=== PATIENT | female | born 1995 | race Caucasian/White ===

== ENCOUNTER → 2020-08-24 11:05 | Outpatient (BNVA) | payer OTHER, SELFPAY | PROVIDERS: Visit Provider Nurse Practitioner Family | DX: R68.89 Other general symptoms and signs (principal); J06.9 Acute upper respiratory infection, unspecified; B96.89 Other specified bacterial agents as the cause of diseases classified elsewhere | CPT/HCPCS: 87400 ==

== ENCOUNTER 2022-05-19 06:00 | Outpatient (RCR) | payer OTHER, SELFPAY | END 2022-05-31 23:59 | disposition home or self-care (01) | LOC: SPT 06:00 | PROVIDERS: Visit Provider Orthopaedic Surgery | DX: Z98.890 Other specified postprocedural states (principal) | CPT/HCPCS: 97110; 97161 ==

== ENCOUNTER 2022-06-01 06:00 | Outpatient (RCR) | payer OTHER, SELFPAY | END 2022-06-28 23:59 | disposition home or self-care (01) | LOC: SPT 06:00 | PROVIDERS: Visit Provider Orthopaedic Surgery | DX: Z98.890 Other specified postprocedural states (principal) | CPT/HCPCS: 97110; 97530 ==

== ENCOUNTER 2022-06-29 06:00 | Outpatient (RCR) | payer OTHER, SELFPAY | END 2022-07-21 23:59 | disposition home or self-care (01) | LOC: SPT 06:00 | PROVIDERS: PCP Family Medicine; Visit Provider Orthopaedic Surgery | DX: Z98.890 Other specified postprocedural states (principal) | CPT/HCPCS: 97110 ==

== ENCOUNTER → 2022-08-08 09:55 | Outpatient (BNVA) | payer OTHER, SELFPAY | PROVIDERS: PCP Family Medicine; Visit Provider Nurse Practitioner Family | DX: R39.9 Unspecified symptoms and signs involving the genitourinary system (principal) | CPT/HCPCS: 81000 ==

== ENCOUNTER 2022-10-06 12:55 | Outpatient (CLI) | payer OTHER, SELFPAY ==
--- NOTE | 2022-10-06 | MR_ITS ---
WS: [id number] MRI RIGHT SHOULDER ARTHROGRAM HISTORY: SLAP TEAR COMPARISON: Prior MRI 01/21/2022 TECHNIQUE: Pre and postcontrast imaging. Gadolinium mixture was injected under fluoroscopy. Coronal T 1 fat sat, sagittal T2 fat sat, coronal T2 fat sat, axial proton density, axial T1 nonfat saturation. Prearthrogram: Mild AC joint arthritis with encroachment upon the myotendinous insertion supraspinatu s tendon. There is a small amount of edema along the AC ligament. No widening or displacement. No sub acromial impingement. No os acromion. Normal position of the biceps tendon. There is no joint effusion or marrow edema. No rotator cuff tendon tear. No muscle atrophy or edema. Post arthrogram: There is no extravasation of the joint injection into the subacromial or subdeltoid bursa. No definite labral tear is identified. There is very slight fraying along the surface of the s uperior labrum but there is no tear. There is a very small amount contrast between the superior labru m and the supraspinatus tendon which is probably a normal variant recess. MR/MR shoulder RT wo/w con [id number] IMPRESSION: 1. No rotator cuff tear or joint effusion. 2. Very minimal AC joint arthritis. 3. No labral tear is identified by MRI.
--- NOTE | 2022-10-06 13:11 | IR_ITS ---
WS: [id number] Right shoulder arthrogram, 10/06/2022 Clinical Data: SLAP TEAR Comparison: None. Fluoroscopy time: 1min [id number] # of spot films: 1 Findings: With the usual technique, a 22-gauge small spinal needle was inserted into the right shoulder joint. After localizing the needle tip with 1 mL of Omnipaque at a concentration of 240 mg/mL, an injection of 12 mL of dilute gadolinium was done. The shoulder joint shows a normal outline. No evidence of a rotator cuff tear could be seen. IR/IR arthrogram shoulderRT [id number] Impression: Satisfactory injection of a dilute gadolinium into the right shoulder joint for preparation for MR arthrogram.
== END 2022-10-06 12:56 | disposition home or self-care (01) ==
PROVIDERS: PCP Family Medicine Adult Medicine; Visit Provider Orthopaedic Surgery
DX: S43.431A Superior glenoid labrum lesion of right shoulder, initial encounter (principal); X58.XXXA Exposure to other specified factors, initial encounter; M19.011 Primary osteoarthritis, right shoulder
CPT/HCPCS: 23350; 73223; 77002

== ENCOUNTER 2023-02-02 07:50 | Outpatient (RCR) | payer OTHER, SELFPAY | END 2023-02-28 23:59 | disposition home or self-care (01) | LOC: SPT 07:50 | PROVIDERS: PCP Family Medicine; Visit Provider Neurological Surgery | DX: S22.089D Unspecified fracture of T11-T12 vertebra, subsequent encounter for fracture with routine healing (principal); X58.XXXD Exposure to other specified factors, subsequent encounter | CPT/HCPCS: 97110; 97161; G0283 ==

== ENCOUNTER 2023-03-01 06:00 | Outpatient (RCR) | payer OTHER, SELFPAY | END 2023-03-21 23:59 | disposition home or self-care (01) | LOC: SPT 06:00 | PROVIDERS: PCP Family Medicine; Visit Provider Neurological Surgery | DX: S22.009D Unspecified fracture of unspecified thoracic vertebra, subsequent encounter for fracture with routine healing (principal); X58.XXXD Exposure to other specified factors, subsequent encounter | CPT/HCPCS: 97110; G0283 ==

== ENCOUNTER 2023-06-25 01:52 | Emergency (ER) | payer OTHER, SELFPAY ==
[2023-06-25 02:00] VITALS: BP 126/91; PULSE 82; RESP 18; TEMP 36.8; O2SAT 100; BMI 29.2
[2023-06-25] MEDS: sodium chloride 0.9% 1,000 ML 999 ML IV (02:46)
[2023-06-25] MEDS: ondansetron 2 mg/ML SDV 2 mL 4 MG IVP ×2 (02:46→05:03)
[2023-06-25 02:48] VITALS: RESP 22; O2SAT 100
[2023-06-25] MEDS: HYDROmorphone 1 mg/mL INJ 1 mL IVP ×2 (02:48→05:07)
[2023-06-25 02:59] LABS: Basophils # 0.1 10^3/uL (0.0-0.1); Basophils % 0.5 %; Eosinophils # 0.3 10^3/uL (0.0-0.8); Eosinophils % 1.9 %; Hematocrit 38.2 % (36-47); Lymphocytes % 7.5 %; Mean Corpuscular HGB Conc 32.5 g/dL (30-55); Mean Corpuscular Hemoglobin 29.2 pg (27-33); Mean Corpuscular Volume 90.1 fl (85-98); Mean Platelet Volume 9.8 fL (7.4-10.4); Monocytes # 0.7 10^3/uL (0.2-0.9); Monocytes % 5.4 %; Neutrophils # 11.32 10^3/uL (1.8-7.7); Neutrophils % 84.4 %; Nucleated Red Blood Cells % 0 %; Platelet Count 391 10^3/cmm (157-399); Red Blood Count 4.24 10^6/uL (3.85-5.65); Red Cell Distribution Width 12.8 % (12.1-15.1); White Blood Count 13.42 10^3/uL (3.29-11.43)
[2023-06-25 03:23] LABS: HCG, Serum Qual Negative (Negative)
[2023-06-25] MEDS: scopolamine 1.5 Patch 1 PATCH TRANSDERMA (03:27)
[2023-06-25 03:29] LABS: Alanine Aminotransferase 17 U/L (0-33); Albumin Level 4.2 g/dL (3.5-5.2); Alkaline Phosphatase 72 U/L (35-105); Aspartate Amino Transferase 18 U/L (0-32); Blood Urea Nitrogen 13 mg/dL (6-20); C Reactive Protein 4.3 mg/L (0.0-4.9); Calcium 8.9 mg/dL (8.5-10.5); Carbon Dioxide 23 mmol/L (22-29); Chloride 99 mmol/L (98-107); Glomerular Filtration Rate 100.4 mL/min (90-130); Glucose 129 mg/dL (65-115); Lipase 36 U/L (13-60); Osmolality Calculated 284 mOsm/kg (285-295); Sodium 136 mmol/L (136-145); Total Bilirubin 0.3 mg/dL (0.15-1.2); Total Protein 7.2 g/dL (6.6-8.7)
--- NOTE | 2023-06-25 03:43 | XRR_ITS ---
PROCEDURE INFORMATION: Exam: XR Abdomen Exam date and time: 06/25/2023 3:52 AM Age: 28 years old Clinical indication: Fever and nausea and vomiting; Prior surgery; Surgery date: 6+ months; Surgery type: Gb. Gastric sleeve. Appy. Patient HX: Fever with n/v TECHNIQUE: Imaging protocol: Radiologic exam of the abdomen. Views: Frontal supine view of the abdomen. 1 View. COMPARISON: No relevant prior studies available. FINDINGS: Tubes, catheters and devices: Multifocal clips. Gastrointestinal tract: No small bowel dilation or free air identified. Bones/joints: Unremarkable. XR/XR KUB portable [id number] IMPRESSION: No acute findings.
[2023-06-25 04:15] LABS: Add Urine Microscopic? NO; Charge for UA Resulting for Rev
[2023-06-25 04:18] LABS: Bilirubin Urine Neg (Negative); Blood Urine Neg (Negative); Glucose Urine UA Norm (Normal); Ketones Urine 1+ (Negative); Leukocyte Esterase Urine Negative (Negative); Nitrate Urine Negative (Negative); Protein Urine Neg (Negative); Urine Appearance Clear (CLEAR); Urine Color Yellow (Yellow); Urobilinogen Urine Norm (Negative); pH Urine 5 (5-7)
--- NOTE | 2023-06-25 04:38 | CTR_ITS ---
PROCEDURE INFORMATION: Exam: CT Cervical Spine Without Contrast Exam date and time: 06/25/2023 4:44 AM Age: 28 years old Clinical indication: Prior surgery; Surgery date: 1-6 months; Surgery type: Cervical fusion 8 weeks ago; Patient HX: Neck pain with fever; Additional info: Neck pain, HX of recent fusion TECHNIQUE: Imaging protocol: Computed tomography of the cervical spine without contrast. Radiation optimization: All CT scans at this facility use at least one of these dose optimization techniques: automated exposure control; mA and/or kV adjustment per patient size (includes targeted exams where dose is matched to clinical indication); or iterative reconstruction. COMPARISON: CR XR cervical spine 4-5V [id number] 10/17/2019 3:28 PM RADIATION DOSE METRICS: Total DLP (mGy-cm): 459.57 FINDINGS: Bones/joints: No acute fracture. C1-C2 posterior fusion appears intact with bone graft material. Normal alignment. No significant disc bulge or herniation. No severe spinal canal stenosis. No significant neural foraminal narrowing. Lungs: Lung apices are normal. Soft tissues: Mild upper posterior neck edema or scarring. No focal abscess. CT/CT cervical spin wo con* [id number] IMPRESSION: 1. No acute findings. 2. C1-C2 posterior fusion appears intact with bone graft material. Based on history, an MRI may be helpful if concern remains.
[2023-06-25] MEDS: haloperidol inj 5 mg/mL INJ 1 mL 3 MG IVP (05:04)
[2023-06-25 05:07] VITALS: RESP 18; O2SAT 100
[2023-06-25] MEDS: ketorolac 30 mg/mL INJ IVP (06:20)
[2023-06-25 07:01] VITALS: O2SAT 98
--- NOTE | 2023-06-25 16:13 | ED_ITS ---
HPI - Nausea/Vomiting/Diarrhea 2 General: Chief complaint: Nausea/Vomiting/Diarrhea Stated complaint: Fever, N/V, Neck pain Time Seen by Provider: 06/25/23 02:10 History of Present Illness: 28 year old female who was a couple of w eeks status post C1 to CT fusion, done in [place]. She states that she began to get sick last evening, and has vomited multiple times. The retching has caused her neck to hurt significantly. She was experiencing an increase in neck pain prior to this for the last couple of days. She had done well prior to that. She does note that physical therapy has gotten a bit more aggressive lately. She denies diarrhea. She denies fever. She is extremely nauseated. She has some mild epigastric pain. She notes that her neck pain is quite intense after vomiting. It radiates to her bilateral shoulders. No numbness or tingling. Associated nausea: Yes Associated symtoms: Reports dizziness, headache(s) and nausea; Denies change in vision, chest pain or palpitations Review of Systems 2 Const: Denies: fever(s), chills or body aches Eyes: Denies: change in vision ENMT: Denies: throat pain or swelling of lips/tongue Card: Denies: chest pain or palpitations Resp: Denies: dyspnea, productive cough, non-productive cough or wheezing GI: Reports: abdominal pain, nausea and vomiting; Denies: diarrhea or hematochezia : Denies: difficulty voiding Skin/Breast: Denies: rash Neuro: Reports: headache(s) and dizziness; Denies: weakness in extremities or confusion PFSH ED 2 PFSH: Medical History Shoulder joint painful on movement Repetitive strain injury of right shoulder Joint pain Bulging discs Arthritis Yeast vaginitis Migraine headache Surgical History History of carpal tunnel surgery of left wrist History of ankle surgery History of appendectomy H/O shoulder surgery right shoulder scope-cartilage repair and bone spur removed History of gastric surgery gastric sleeve History of cholecystectomy Hx of tonsillectomy Social History Smoking and tobacco/nicotine status: never used tobacco/nicotine Second hand smoke exposure: No Alcohol intake: never Substance/Drug Use: never Physical Exam 2 Const: GENERAL APPEARANCE: cooperative and ill appearing; not frail appearing HENMT: COMMON NORMALS: normocephalic, atraumatic and Normal external nose present HEAD & SCALP: normocephalic and atraumatic FACE & SINUS: normal facial exam and face symmetric NOSE: Normal external nose present Eye: COMMON NORMALS: Equal, round and reactive pupils present and EOMs intact bilaterally PUPIL: Yes Equal, round and reactive pupils present Neck/C-Spine: GENERAL: Yes trachea midline Chest: CHEST: Yes Symmetrical chest wall rise Resp: COMMON NORMALS: normal respiratory effort, No retractions, No use of accessory muscles and clear to auscultation bilaterally AUSCULTATION: clear to auscultation bilaterally Cardio: COMMON NORMALS: regular rate and regular rhythm RATE: regular rate RHYTHM: regular rhythm GI: COMMON NORMALS: Normal to inspection, nondistended, normoactive bowel sounds present PALPATION: Yes Tenderness to palpation present (GI) (epigastric) and Yes Guarding due to palpation present (GI) Extremity: COMMON NORMALS: no pedal edema Neuro: VIVEK COMA SCALE: document GCS findings [place] coma scale eye opening: Spontaneous [place] coma scale verbal response: Orientated [place] coma scale motor response: Obey commands [place] coma scale total score: 15 S ENSORY EXAM: Yes extremities (intact) Psych: COMMON NORMALS: speech normal SPEECH: Yes normal speech Skin: COMMON NORMALS: no rashes or lesions noted GENERAL SKIN EXAM: no rashes or lesions noted Course 2 Vital Signs: Vital signs: Vital Signs Temperature 98.3 F 06/25/23 02:00 Pulse Rate 82 06/25/23 02:00 Respiratory Rate 18 06/25/23 05:07 Blood Pressure 126/91 06/25/23 02:00 Pulse Oximetry 98 06/25/23 07:01 Oxygen Delivery Me thod Room Air 06/25/23 02:00 MDM - Nausea/Vomiting/Diarrhea Medical Decision Making 28 year old female status post high cervical fusion. Vomiting seemed to worsen with pain medication given, which was hydromorphone. However, vomiting has improved currently. Her neck pain has improved as well. Her white blood cell count is 13.4. CRP is 4. Her laboratories otherwise not remarkable. Her KUB is non acute. CT of the cervical spine shows no complication with C1-C2 fusion. She is afebrile. With improvement in her symptoms, she'll be allowed home to return for any worsening symptoms despite treatment. We'll increase our pain medication and provide her with anti emetic. Lab Data 06/25/23 02:48 06/25/23 02:48 Radiology Impressions KUB X-Ray 06/25/23 03:43 IMPRESSION: No acute findings. Cervical Spine CT 06/25/23 04:38 IMPRESSION: 1. No acute findings. 2. C1-C2 posterior fusion appears intact with bone graft material. Based on history, an MRI may be helpful if concern remains. Laboratory Results WBC 13.42 10^3/uL (3.29-11.43) H 06/25/23 02:48 RBC 4.24 10^6/uL (3.85-5.65) 06/25/23 02:48 Hgb 12.40 g/dL (11.27-16.99) 06/25/23 02:48 Hct 38.2 % (36-47) 06/25/23 02:48 MCV 90.1 fl (85-98) 06/25/23 02:48 MCH 29.2 pg (27-33) 06/25/23 02:48 MCHC 32.5 g/dL (30-55) 06/25/23 02:48 RDW 12.8 % (12.1-15.1) 06/25/23 02:48 Plt Count 391 10^3/cmm (157-399) 06/25/23 02:48 MPV 9.8 fL (7.4-10.4) 06/25/23 02:48 Neut % (Auto) 84.4 % 06/25/23 02:48 Lymph % (Auto) 7.5 % 06/25/23 02:48 [place] % (Auto) 5.4 % 06/25/23 02:48 Eos % (Auto) 1.9 % 06/25/23 02:48 Baso % (Auto) 0.5 % 06/25/23 02:48 Neut # (Auto) 11.32 10^3/uL (1.8-7.7) H 06/25/23 02:48 Lymph # (Auto) 1.0 10^3/uL (0.8-4.8) 06/25/23 02:48 [place] # (Auto) 0.7 10^3/uL (0.2-0.9) 06/25/23 02:48 Eos # (Auto) 0.3 10^3/uL (0.0-0.8) 06/25/23 02:48 Baso # (Auto) 0.1 10^3/uL (0.0-0.1) 06/25/23 02:48 Nucleated RBC % (auto) 0 % 06/25/23 02:48 Nucleated RBCs # 0.0 /100WBC 06/25/23 02:48 Sodium 136 mmol/L (136-145) 06/25/23 02:48 Potassium 4.0 mmol/L (3.5-5.1) 06/25/23 02:48 Chloride 99 mmol/L (98-107) 06/25/23 02:48 Carbon Dioxide 23 mmol/L (22-29) 06/25/23 02:48 Anion Gap 18.0 (5-19) 06/25/23 02:48 BUN 13 mg/dL (6-20) 06/25/23 02:48 Creatinine 0.7 mg/dL (0.5-0.9) 06/25/23 02:48 GFR Calculation 100.4 mL/min (90-130) 06/25/23 02:48 Glucose 129 mg/dL (65-115) H 06/25/23 02:48 Calculated Osmolality 284 mOsm/kg (285-295) L 06/25/23 02:48 Calcium 8.9 mg/dL (8.5-10.5) 06/25/23 02:48 Total Bilirubin 0.3 mg/dL (0.15-1.2) 06/25/23 02:48 AST 18 U/L (0-32) 06/25/23 02:48 ALT 17 U/L (0-33) 06/25/23 02:48 Alkaline Phosphatase 72 U/L (35-105) 06/25/23 02:48 C-Reactive Protein 4.3 mg/L (0.0-4.9) 06/25/23 02:48 Total Protein 7.2 g/dL (6.6-8.7) 06/25/23 02:48 Albumin 4.2 g/dL (3.5-5.2) 06/25/23 02:48 Globulin 3.0 g/dL (1.3-4.6) 06/25/23 02:48 Lipase 36 U/L (13-60) 06/25/23 02:48 HCG, Qual Negative (Negative) 06/25/23 02:48 Urine Color Yellow (Yellow) 06/25/23 04:07 Urine Appearance Clear (CLEAR) 06/25/23 04:07 Urine pH 5 (5-7) 06/25/23 04:07 Ur Specific [place] 1.020 (1.005-1.030) 06/25/23 04:07 Urine Protein Neg (Negative) 06/25/23 04:07 Urine Glucose (UA) Norm (Normal) 06/25/23 04:07 Urine Ketones 1+ (Negative) H 06/25/23 04:07 Urine Blood Neg (Negative) 06/25/23 04:07 Urine Nitrate Negative (Negative) 06/25/23 04:07 Urine Bilirubin Neg (Negative) 06/25/23 04:07 Urine Urobilinogen Norm mg/dL (Negative) 06/25/23 04:07 Ur Leukocyte Esterase Negative (Negative) 06/25/23 04:07 All radiology interpretation(s) finalized by discharge Discharge Plan Discharge Patient Disposition: Home Clinical Impression: Neck pain, acute, Vomiting Condition: Stable Prescriptions: New Percocet 7.5-325 mg tablet 1 tab PO Q6H PRN (Reason: pain) Qty: 10 0RF ondansetron 4 mg tablet,disintegrating 4 mg PO Q6H PRN (Reason: nausea and vomiting) Qty: 14 0RF No Action duloxetine [Cymbalta] 60 mg capsule,delayed release(DR/EC) 20 mg PO BID hydrocodone-acetaminophen 5-325 mg tablet 1 tab PO Q6H PRN ondansetron HCl 4 mg tablet 4 mg PO Q8H drospirenone-ethinyl estradiol [MAN (28)] 3-0.02 mg tablet 1 tab PO DAILY fluconazole [Diflucan] 150 mg tablet 150 mg PO Q3D Qty: 2 0RF celecoxib [Celebrex] 200 mg capsule 200 mg PO DAILY Qty: 30 1RF metaxalone 800 mg tablet 800 mg PO ONCE PRN rizatriptan [Maxalt] 10 mg tablet 10 mg PO Q2H PRN Rx Instructions: do not exceed 3 doses per 24 hrs fluticasone propionate [Flonase Allergy Relief] 50 mcg/actuation spray,suspension 2 spray intranasal DAILY 14 Days Qty: 16 0RF Rx Instructions: administer into each nostril loratadine [Allergy Relief (loratadine)] 10 mg tablet 10 mg PO DAILY Qty: 30 0RF Discharge Orders: Discharge ED (Routine); Ordered 06/25/23 Ordered By: Rick Parks Referrals: TITA CRUZ MD [Primary Care Provider] - Patient Instructions: Acute Neck Pain (ED), Opioid Safety, Pain Management, Vomiting - Adult Activity Restrictions/Additional Instructions: Follow a liquid diet for the next 24 hours, then may add solid food back as you can. Take the nausea medication (ondansetron) scheduled every 4 hours while awake today whether you feel you needed or not. Pain medication as directed. Return for fever, worsening pain or vomiting despite treatment, other concerning symptoms. 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
== END 2023-06-25 07:16 | disposition home or self-care (01) ==
PROVIDERS: Emergency Provider Emergency Medicine; PCP Family Medicine
DX: M54.2 Cervicalgia (principal); R11.11 Vomiting without nausea
CPT/HCPCS: 72125; 74018; 80053; 81003; 83690; 84703; 85025; 86140; 96361; 96374; 96375; 96376; 99285; J1170; J1630; J1885; J2405; J7030

== ENCOUNTER → 2023-06-29 16:02 | Outpatient (BNVA) | payer OTHER, SELFPAY | PROVIDERS: PCP Family Medicine; Visit Provider Registered Nurse Neonatal Intensive Care | DX: R30.9 Painful micturition, unspecified (principal) | CPT/HCPCS: 81000; 87086 ==

== ENCOUNTER 2023-11-24 07:12 | Outpatient (CLI) | payer OTHER, SELFPAY ==
--- NOTE | 2023-11-24 07:16 | MR_ITS ---
WS: [id number] MRI CERVICAL SPINE NONCONTRAST TECHNIQUE: Sagittal T1, T2 and STIR imaging. Axial T2, gradient, and fiesta imaging. CLINICAL INFORMATION: CERVICAL REGION RADICULOPATHY COMPARISON: CT 06/25/2023 FINDINGS: Straightening of the normal cervical lordosis. Prior postoperative changes cervical fusion at C1-2 wi th posterior bone graft material. Mild spinal canal narrowing at the foramen magnum. Cord signal appe ars normal. Some images are degraded due to susceptibility artifact from hardware. C2-C3: Mild facet arthropathy. Spinal canal and foramen are patent. C3-C4: Mild facet arthropathy. Spinal canal is patent. Foramen are patent. C4-C5: Mild disc osteophytic ridging. Mild facet arthropathy. Spinal canal and foramen are patent. C5-C6: No significant disc bulging. Mild facet arthropathy. Spinal canal and foramina are patent. C6-C7: Mild disc bulging with osteophytic ridging. Mild LEFT and no significant RIGHT foraminal narro wing. Mild facet arthropathy. Spinal canal is patent. C7-T1: Shallow LEFT paracentral protrusion. Mild LEFT and no significant RIGHT foraminal narrowing. S fifi canal is patent. Visualized brain stem structures: Normal. Prevertebral soft tissues: Normal. Tiny RIGHT foraminal protrusion T2-3 without significant foraminal narrowing. MR/MR cervical spin wo con* [id number] IMPRESSION: 1. Straightening of the normal cervical lordosis with prior posterior fusion a t C1 and C2 with dorsal bone graft material. Mild narrowing at the foramen magn um. Cord signal appears normal. 2. Slightly low-lying cerebellar tonsils. 3. Mild disc bulging C5-C6 C6-C7 and C7-T1. 4. Mild LEFT C6-7 and LEFT C7-T1 foraminal narrowing. 5. Shallow LEFT paracentral protrusion C7-T1.
== END 2023-11-24 07:13 | disposition home or self-care (01) ==
LOC: RAD 07:12
PROVIDERS: PCP Family Medicine; Visit Provider Physician Assistant
DX: M54.12 Radiculopathy, cervical region (principal); M43.22 Fusion of spine, cervical region
CPT/HCPCS: 72141

== ENCOUNTER 2024-03-08 15:15 | Outpatient (CLI) | payer OTHER, SELFPAY ==
[2024-03-08] VITALS (7 sets, daily range): BP systolic 97–133; BP diastolic 54–84; PULSE 81–92; BMI 33.6
--- NOTE | 2024-03-08 16:04 | USR_ITS ---
PROCEDURE INFORMATION: Exam: US Biophysical Profile Without Non-Stress Test Exam date and time: 03/08/2024 4:26 PM Age: 28 years old Clinical indication: Other: Nonreactive nst; TECHNIQUE: Imaging protocol: US biophysical profile without non-stress testing. COMPARISON: [place] [id number] 01/18/2024 1:55 PM FINDINGS: heart rate: 138 bpm BIOPHYSICAL PROFILE: breathing (BPP): 2 out of 2. gross body movement (BPP): 2 out of 2. tone (BPP): 2 out of 2. Amniotic fluid (BPP): 2 out of 2. US/US OB BPP wo NST [id number] IMPRESSION: Biophysical profile measures 12/06
== END 2024-03-08 17:08 | disposition home or self-care (01) ==
LOC: OPOB 15:15 → OBGYN 15:16
PROVIDERS: PCP Family Medicine; Visit Provider Family Medicine
DX: O24.419 Gestational diabetes mellitus in pregnancy, unspecified control (principal); Z3A.00 Weeks of gestation of pregnancy not specified
CPT/HCPCS: 59025; 76819; 99211

== ENCOUNTER 2024-03-11 15:55 | Outpatient (CLI) | payer OTHER, SELFPAY ==
[2024-03-08 16:21] VITALS: RESP 18
[2024-03-08 17:08] VITALS: RESP 19
[2024-03-11 16:05] VITALS: BMI 34.2
[2024-03-11 16:08] VITALS: BP 128/71; PULSE 85
[2024-03-11 16:50] VITALS: BP 110/74; PULSE 78; RESP 16; TEMP 36.7; O2SAT 99
== END 2024-03-11 17:00 ==
LOC: OPOB 15:56 → OBGYN 15:57
PROVIDERS: PCP Family Medicine; Visit Provider Family Medicine
DX: O24.419 Gestational diabetes mellitus in pregnancy, unspecified control (principal); Z3A.00 Weeks of gestation of pregnancy not specified
CPT/HCPCS: 59025; 99211

== ENCOUNTER 2024-03-14 13:28 | Outpatient (CLI) | payer OTHER, SELFPAY ==
[2024-03-14 13:30] VITALS: BMI 34.5
[2024-03-14 13:42] VITALS: BP 119/72; PULSE 84
[2024-03-14 14:03] VITALS: BP 129/77; PULSE 87
[2024-03-14 14:24] VITALS: BP 140/79; PULSE 74
== END 2024-03-14 14:55 ==
LOC: OPOB 13:31 → OBGYN 13:31
PROVIDERS: PCP Family Medicine; Visit Provider Family Medicine
DX: O24.419 Gestational diabetes mellitus in pregnancy, unspecified control (principal); Z3A.00 Weeks of gestation of pregnancy not specified
CPT/HCPCS: 59025; 99211

== ENCOUNTER 2024-03-18 13:41 | Outpatient (CLI) | payer OTHER, SELFPAY ==
[2024-03-18 13:41] VITALS: RESP 16
[2024-03-18 13:44] VITALS: BP 136/81; PULSE 100
[2024-03-18 13:48] VITALS: BMI 35.3
[2024-03-18 13:59] VITALS: BP 137/77; PULSE 86
[2024-03-18 14:13] VITALS: BP 135/76; PULSE 90
[2024-03-18 14:24] VITALS: BP 135/76; PULSE 90; RESP 16; O2SAT 98
--- NOTE | 2024-03-19 09:39 | P.ANESASSM_ITS ---
Pre-Anesthetic Assessment Height/Weight: Height 1.57 m Weight 87.543 kg Pulse Resp BP Pulse Ox 90 16 135/76 98 03/18/24 14:24 03/18/24 14:24 03/18/24 14:24 03/18/24 14:24 Epidural Familial anesthetic complications: PONV Was Beta Hope taken within 24 hours: N/A Was Clonidine taken within 24 hours: N/A Social No alcohol and No tobacco Exam alert, oriented x 3, clear to auscultation bilaterally and regular rate & rhythm Airway Mallampati: Class I Dentition: full Musc/skel L1 fracture Anesthetic Plan ASA status: 2 Anesthesia: Regional (specify below) Risk of > 500 ml blood loss (7ml/kg in children): Yes, adequate IV access and fluids planned Medications/Allergies Home Medications Medication Instructions Recorded Confirmed Last Taken Type duloxetine 60 mg capsule,delayed 20 mg PO BID 06/01/22 03/18/24 03/18/24 09:00 History release (Cymbalta) hydrocodone 5 mg-acetaminophen 325 1 tab PO Q6H PRN pain 08/17/22 03/18/24 03/17/24 09:00 History mg tablet gabapentin 400 mg capsule 400 mg PO DAILY 03/18/24 03/18/24 03/18/24 09:00 History metformin 500 mg tablet,extended 1,000 mg PO DAILY 03/18/24 03/18/24 03/18/24 09:00 History release 24 hr Allergies Allergy/AdvReac Type Severity Reaction Status Date / Time hydromorphone [From Dilaudid] Allergy ADR-Vomitin Verified 06/29/23 15:50 g [facility] Anesthesia Medical History Shoulder joint painful on movement Repetitive strain injury of right shoulder Joint pain Bulging discs Arthritis Yeast vaginitis Migraine headache Surgical History History of carpal tunnel surgery of left wrist History of ankle surgery History of appendectomy H/O shoulder surgery right shoulder scope-cartilage repair and bone spur removed History of gastric surgery gastric sleeve History of cholecystectomy Hx of tonsillectomy Social History Smoking and tobacco/nicotine status: never used tobacco/nicotine Second hand smoke exposure: No Alcohol intake: never Substance/Drug Use: never Female Reproductive History : 1 Data Anesthesia Cardiac Studies: No Data to Display
== END 2024-03-18 14:25 | disposition home or self-care (01) ==
LOC: OPOB 13:41 → OBGYN 03-19 09:36
PROVIDERS: PCP Family Medicine; Visit Provider Family Medicine
DX: O24.419 Gestational diabetes mellitus in pregnancy, unspecified control (principal); Z3A.00 Weeks of gestation of pregnancy not specified
CPT/HCPCS: 59025; 99211

== ENCOUNTER 2024-03-21 16:49 | Outpatient (CLI) | payer OTHER, SELFPAY ==
[2024-03-21 17:01] VITALS: BP 126/79; PULSE 97
[2024-03-21 17:15] VITALS: BMI 34.9
[2024-03-21 17:17] VITALS: BP 124/75; PULSE 86
[2024-03-21 17:27] VITALS: BP 124/75; PULSE 86; RESP 16
== END 2024-03-21 17:27 | disposition home or self-care (01) ==
LOC: OPOB 16:49 → OBGYN 16:50
PROVIDERS: PCP Family Medicine; Visit Provider Family Medicine
DX: O24.419 Gestational diabetes mellitus in pregnancy, unspecified control (principal); Z3A.00 Weeks of gestation of pregnancy not specified; R10.9 Unspecified abdominal pain
CPT/HCPCS: 59025

== ENCOUNTER 2024-03-26 23:34 | Outpatient (CLI) | payer OTHER, SELFPAY ==
[2024-03-26 23:51] VITALS: BP 132/82; PULSE 77; TEMP 35.4
[2024-03-27] VITALS: RESP 18; BMI 35.4
[2024-03-27 00:11] VITALS: BP 122/81; PULSE 81
[2024-03-27 00:19] VITALS: BP 135/82; PULSE 75
[2024-03-27 00:34] VITALS: BP 120/75; PULSE 72
[2024-03-27 00:40] VITALS: BP 120/75; PULSE 72; RESP 18
== END 2024-03-27 00:45 | disposition home or self-care (01) ==
LOC: OPOB 23:37 → OBGYN 23:38
PROVIDERS: PCP Family Medicine; Visit Provider Family Medicine
DX: O36.8190 Decreased fetal movements, unspecified trimester, not applicable or unspecified (principal); Z3A.00 Weeks of gestation of pregnancy not specified; O16.9 Unspecified maternal hypertension, unspecified trimester; R51.9 Headache, unspecified
CPT/HCPCS: 59025; 99211

== ENCOUNTER 2024-03-29 03:27 | Inpatient (IN) | payer OTHER, SELFPAY ==
[2024-03-29] VITALS (97 sets, daily range): BP systolic 123–182; BP diastolic 60–112; PULSE 66–133; TEMP 36.2–36.7; O2SAT 99–100; BMI 34.2
[2024-03-29 03:59] LABS: Basophils # 0.1 10^3/uL (0.0-0.1); Basophils % 0.7 %; Eosinophils # 0.2 10^3/uL (0.0-0.8); Eosinophils % 1.5 %; Hematocrit 27.5 % (36-47); Lymphocytes # 3.2 10^3/uL (0.8-4.8); Lymphocytes % 29.5 %; Mean Corpuscular HGB Conc 31.3 g/dL (30-55); Mean Corpuscular Hemoglobin 26.1 pg (27-33); Mean Corpuscular Volume 83.3 fl (85-98); Mean Platelet Volume 9.8 fL (7.4-10.4); Monocytes # 0.9 10^3/uL (0.2-0.9); Neutrophils # 6.41 10^3/uL (1.8-7.7); Neutrophils % 59.7 %; Nucleated Red Blood Cells % 0.2 %; Platelet Count 310 10^3/cmm (157-399); Red Cell Distribution Width 13.5 % (12.1-15.1); White Blood Count 10.74 10^3/uL (3.29-11.43)
[2024-03-29 04:02] LABS: Bilirubin Urine Negative (Negative); Blood Urine Negative (Negative); Glucose Urine UA Negative (Normal); Ketones Urine Negative (Negative); Leukocyte Esterase Urine Negative (Negative); Nitrate Urine Negative (Negative); Protein Urine Negative (Negative); Specific Gravity, Urine 1.018 (1.005-1.030); Urine Appearance Clear (CLEAR); Urine Color Yellow (Yellow)
[2024-03-29 04:07] LABS: Add Urine Microscopic? YES; Bacteria Urine None Seen /hpf; Hyaline Casts Urine 0-4 /lpf; RBC Urine 0-2 /hpf (0-2); Squamous Epithelial Cell Urine 0-5 /hpf (0-5); WBC Urine 0-5 /hpf (0-5)
[2024-03-29 04:09] LABS: Amphetamines Screen Urine Negative (Negative); Barbiturates Screen Urine Negative (Negative); Benzodiazepines Screen Urine Negative (Negative); Cocaine Screen Urine Negative (Negative); Opiate Screen Urine Negative (Negative); PCP Screen Urine Negative (Negative); THC Screen Urine Negative (Negative)
[2024-03-29 04:19] LABS: Alanine Aminotransferase < 5 U/L (0-33); Albumin Level 3.2 g/dL (3.5-5.2); Alkaline Phosphatase 164 U/L (35-105); Anion Gap 15.9 (5-19); Aspartate Amino Transferase 12 U/L (0-32); Blood Urea Nitrogen 8 mg/dL (6-20); Calcium 8.1 mg/dL (8.5-10.5); Carbon Dioxide 21 mmol/L (22-29); Chloride 106 mmol/L (98-107); Creatinine Clr Calc Pharmacy 213.4071; Globulin 2.6 g/dL (1.3-4.6); Glomerular Filtration Rate 191.5 mL/min (90-130); Glucose 79 mg/dL (65-115); Osmolality Calculated 285 mOsm/kg (285-295); Potassium 3.9 mmol/L (3.5-5.1); Sodium 139 mmol/L (136-145); Total Bilirubin 0.2 mg/dL (0.15-1.2); Total Protein 5.8 g/dL (6.6-8.7); Uric Acid 3.7 mg/dL (2.4-5.7)
[2024-03-29 04:20] LABS: Urine Creatinine 84 mg/dL (28-217); Urine Protein Random 13 mg/dL
[2024-03-29 04:25] LABS: UPRO/UCREAT Ratio 0.15 mg/mg CR
[2024-03-29] MEDS: ampicillin 2,000 MG in sodium chloride 0.9% (plus) 50 ML 100 MG IV (04:53)
[2024-03-29] MEDS: lactated ringers 1,000 ML 999 ML IV ×2 (05:30→06:50)
--- NOTE | 2024-03-29 06:44 | P.ANESUD_ITS ---
Pre-Anesthetic Update Pre-Anesthetic Assessment: Date of Surgery/Procedure: 03/29/24 Preop Ellie gnosis: Intra uterine Proposed Procedure: labo epidural Any changes to Pre-Anesthetic Assessment?: No Last Intake: solids: 2200, currently sipping water Labs Last 48hrs: Short CBC 03/29/24 Range/Units 03:20 WBC 10.74 (3.29-11.43) 10^ 3/uL Hgb 8.60 L (11.27-16.99) g/ dL Hct 27.5 L (36-47) % MCV 83.3 L (85-98) fl Plt Count 310 (157-399) 10^3/c mm Neut % (Auto) 59.7 % Neut # (Auto) 6.41 (1.8-7.7) 10^3/u L BMP 03/29/24 03:20 Sodium 139 Potassium 3.9 Chloride 106 Carbon Dioxide 21 L BUN 8 Creatinine 0.4 L Glucose 79 Calcium 8.1 L Liver Function 03/29/24 Range/Units 03:20 Total Bilirubin 0.2 (0.15-1.2) mg/dL AST 12 (0-32) U/L ALT < 5 (0-33) U/L Alkaline Phosphata se 164 H (35-105) U/L Albumin 3.2 L (3.5-5.2) g/dL Urine 03/29/24 Range/Units 03:20 Urine Color Yellow (Yellow) Urine Appearance Clear (CLEAR) Urine pH 6.0 (5-7) Ur Specific Gravit y 1.018 (1.005-1.030) Urine Protein Negative (Negative) Urine Glucose (UA) Negative (Normal) Urine Ketones Negative (Negative) Urine Nitrate Negative (Negative) Urine Bilirubin Negative (Negative) Ur Leukocyte Yvonne ase Negative (Negative) Urine RBC 0-2 (0-2) /hpf Urine WBC 0-5 (0-5) /hpf Blood Bank 03/29/24 03:20 Blood Type B Positive Rho(D) Type Rh positive Antibody Screen Negative Vitals: Temperature 97.2 F L 03/29/24 04:04 Pulse Rate 88 03/29/24 06:22 Pulse Rhythm Regular 03/29/24 03:28 Pulse Strength 3+ Normal 03/29/24 03:28 Respiratory Effort Spontaneous, Non- Labored 03/29/24 03:28 Respiratory Depth Normal 03/29/24 03:28 Respiratory Patter n Normal 03/29/24 03:28 Blood Pressure 147/71 03/29/24 06:22 Oxygen Delivery Me thod Room Air 03/29/24 03:28 Exam: Pre-Anes Outpt Exam: alert, oriented x 3 and clear to auscultation bilaterally Cardiac Studies: No Data to Display
--- NOTE | 2024-03-29 07:21 | ANES.PROC ---
Documented by User: Monique Lehman 03/29/24 07:23 Anesthesia Procedures Procedure/Date: 03/29/24 Epidural: Time Out Performed: Yes Consents Signed: Procedure Consent Consent: requested by attending/covering physician, from patient, risks and benefits reviewed and patient agrees to proceed Lumbar Level: L3-L4 Epidural position: sitting Epidural procedure: sterile prep of area, 1% lidocaine to numb the area, 18 g needle, negative for paresthesia passed, neg for paresthesia, test dose given, 1.5% xylocaine 1:200k epi, 0.2% Ropivacaine bolus ml (5), placed PCEA, no systemic response, sterile dressing applied and 0.2% Ropiavacaine @ mls/hr (10) Additional Comments: JERSON 7cm, catheter easily threaded to 5cm in the space. VS monitored and remained stable throughout procedure. Pt educated on ZOOLOGY TECHNICAL OFFICER and reports decreased pain with contractions Documented by User: Sami Mendoza DO 03/29/24 21:37 Anesthesia Procedures Procedure/Date: 03/29/24 Procedure Narrative: called for increasedpain at 2130, epidural appears to be working. 100mcg fentanyl and 5cc 2%lidocaine pushed through epidural
[2024-03-29] MEDS: ROPivacaine syringe 100 MG/50 ML SYRINGE 10 MG EPIDURAL ×5 (07:24→20:53)
[2024-03-29] MEDS: ampicillin 1,000 MG in sodium chloride 0.9% (plus) 50 ML 100 MG IV ×4 (09:12→20:22)
[2024-03-29] MEDS: gabapentin 300 mg Capsule 600 MG PO ×3 (09:36→20:22)
[2024-03-29] MEDS: dextrose 5%-lactated ringers 1,000 ML 125 ML IV ×2 (11:07→20:22)
[2024-03-29] MEDS: oxytocin 30 UNIT/500 ML BAG IV (12:14)
--- NOTE | 2024-03-29 19:01 | PM.OPHPUD ---
Labor & Delivery H&P Update Date of Procedure: March 29, 2024 Date H&P Performed: 03/19/24 Admission Diagnosis: IUP at 38 weeks 3 days gestation Gestational diabetes mellitus -induced hypertension Chronic pain Preop diagnosis: Intra uterine Primary indication for procedure: The patient presented to labor and delivery complaining of headache, contractions and elevated blood pressures at home. She did have a couple severely elevated blood pressures upon presentation so decision was made to proceed with induction. She was brittany regularly and rating them 7-8 out of 10. Her cervix was 1 cm 75% effaced. Since it was favorable she was started on Pitocin. Planned procedure: Expectant management of labor and delivery.
--- NOTE | 2024-03-29 19:07 | PM.PN ---
Subjective Subjective: This is a 28-year-old at 38 weeks 3 days gestation who presented to labor and delivery complaining of contractions and elevated blood pressures. Her has also been complicated by gestational diabetes mellitus on metformin and chronic pain on opioid pain medications. The patient had a couple blood pressures in the severe range. Her platelets, AST, ALT were within normal limits. Her protein creatinine ratio was 0.15. She was not considered preeclamptic but -induced hypertension. She was likely in early labor with 75% effacement upon presentation. She received an epidural for pain management. After receiving her epidural her contractions began to space out to every 6 minutes so she was then started on Pitocin. She is now 3 cm completely effaced, -3 station with a bulging bag of water. The infant's head was not ballotable so I performed artificial rupture of membranes. There was a copious amount of clear fluid. Vitals/I&O/Wt Last Vital Signs Temp 97.2 F L 03/29/24 04:04 Pulse 83 03/29/24 19:01 BP 161/85 03/29/24 19:01 Pulse Ox 100 03/29/24 07:12 O2 Del Method Room Air 03/29/24 03:28 03/29/24 03/29/24 03/29/24 06:59 14:59 22:59 Intake Total 1050 / 1050 166.017 / 166.017 133.75 / 299.767 Balance 1050 / 1050 166.017 / 166.017 133.75 / 299.767 Weight last 48 hrs Weight 84.822 kg Physical Exam Narrative: Alert and oriented, resting in bed, SVE 3 cm completely effaced -3 station. Urinary Catheter Management: Ruano: Cath Placed During This Visit: yes Reason for Continuing Indwelling Catheter: Accurate Measurement of Urinary Output in Critically Ill Patients Urinary Catheter Date of Insertion: 03/29/24 Urinary Catheter Time of Insertion: 08:00 Data 03/29/24 03:20 03/29/24 03:20 A&P Assessment and plan (1) -induced hypertension in third trimester: She is on hypertensive protocol but has not required any doses of antihypertensive medication. (2) Gestational diabetes mellitus (GDM): Upon admission the patient's blood sugar was within normal limits. She has been well-controlled on metformin. At this time I do not feel the need for intrapartum insulin since she is n.p.o. (3) Chronic pain: Attestations Medical Necessity Statement*: Expectant management of labor and delivery Coding Level of Care Code Acute Code for Chg Fwd Diagnoses -induced hypertension in third trimester O13.3 Gestational diabetes mellitus (GDM) O24.419 Chronic pain G89.29
[2024-03-29] MEDS: acetaminophen 325 mg Tablet 650 MG PO (20:52)
[2024-03-29] MEDS: labetalol 5 mg/mL SDV 20mL 20 MG IVP (23:04)
[2024-03-29] MEDS: miSOPROStol 200 mcg Tablet 800 MCG PR (23:37)
[2024-03-29] MEDS: oxytocin 30 UNIT/500 ML BAG 600 UNIT IV (23:55)
--- NOTE | 2024-03-29 23:58 | PM.DELIVERY ---
Delivery Note: Date of delivery: March 29, 2024 Pre-delivery diagnoses: -induced hypertension Gestational diabetes mellitus Chronic pain Intrauterine at 38 weeks 3 days gestation Estimated blood loss (mL): 300 Pre-Delivery Course: The patient had routine care at [facility]. The was complicated by chronic pain syndrome with prescription opioid use and gestational diabetes mellitus controlled with metformin. labs: Blood type B+ antibody negative, hepatitis B nonreactive, hepatitis C nonreactive, HIV nonreactive, rubella immune, GC chlamydia negative, RPR nonreactive, UDS positive for opiates, she failed her glucose tolerance test and was diagnosed with gestational diabetes mellitus. Anatomy ultrasound revealed a two-vessel cord for follow-up growth ultrasounds were within normal limits. Delivery: This is a 28-year-old at 38 weeks 3 days gestation who presented to labor and delivery complaining of contractions and having elevated blood pressure at home. She was admitted likely in early labor with -induced hypertension. She received an epidural for pain management. After the epidural her contractions began to space out so she was started on Pitocin. She underwent artificial rupture of membranes with clear fluid. Approximately 5-1/2 hours after rupture of membranes she was complete and only had to push through a few contractions to have a normal spontaneous vaginal delivery of a viable female infant weight 2760 g, 6 pounds 1 ounces, Apgars 8 and 9 over an intact perineum. The was suctioned at delivery and placed on the mother's chest. The cord was clamped and cut. The placenta was delivered grossly intact and normal to inspection. There were bilateral vaginal lacerations. The right one was sutured first using 3-0 chromic. The left one became hemostatic. The patient had some brisk vaginal bleeding and was given 800 mcg of Cytotec rectally. Her second-degree perineal laceration was sutured with the same 3-0 chromic. Mother and were doing well after delivery. A&P Assessment and plan (1) (normal spontaneous vaginal delivery): Routine care (2) -induced hypertension in third trimester: Continue hypertensive protocol. The patient did receive 1 dose of labetalol prior to delivery (3) Chronic pain: The patient had weaned down on her opioid pain medication and had her last tablet on Monday. She had a second-degree perineal laceration and from an obstetrical standpoint she did not need anything stronger than Tylenol and ibuprofen. She may take her home medications as prescribed. Coding Level of Care Code Acute Code for Chg Fwd Diagnoses (normal spontaneous vaginal delivery) O80 -induced hypertension in third trimester O13.3 Chronic pain G89.29
[2024-03-30] VITALS (10 sets, daily range): BP systolic 109–163; BP diastolic 70–100; PULSE 89–107; RESP 12–16; TEMP 36.5–37.3; O2SAT 97–99
[2024-03-30 00:42] LABS: Glucose Point of Care 89 mg/dL (70-110)
[2024-03-30] MEDS: docusate sodium 100 mg Capsule PO ×2 (08:21→19:23)
[2024-03-30] MEDS: ibuprofen 800 mg tablet PO ×3 (08:21→20:36)
[2024-03-30] MEDS: PRENATAL VIT NO.130/IRON/FOLIC 1 EACH TABLET PO (08:21)
[2024-03-30 10:55] LABS: Hematocrit 21.4 % (36-47); Mean Corpuscular HGB Conc 31.3 g/dL (30-55); Mean Corpuscular Hemoglobin 26.2 pg (27-33); Mean Corpuscular Volume 83.6 fl (85-98); Mean Platelet Volume 9.3 fL (7.4-10.4); Platelet Count 222 10^3/cmm (157-399); Red Blood Count 2.56 10^6/uL (3.85-5.65); Red Cell Distribution Width 13.8 % (12.1-15.1); White Blood Count 13.49 10^3/uL (3.29-11.43)
--- NOTE | 2024-03-30 12:00 | ANE.PACU2 ---
Inpatient post-anesthesia follow up: Airway intact: Yes Vital signs: Temperature 98.6 F Pulse Rate 88 Respiratory Rate 16 Blood Pressure 118/85 Pulse Oximetry 100 Oxygen Delivery Me thod Room Air Oxygen Flow Rate Fraction of Inspir ed Oxygen Hydration adequate: Yes Nausea and vomiting: No Pain level: 1 Mental status: Baseline Epidural Start/End: Epidural Start Date: 03/29/24 Epidural Start Time: 06:45 Epidural End Date: 03/30/24 Epidural End Time: 05:10
--- NOTE | 2024-03-30 15:45 | P.PN_ITS ---
Subjective 2 Subjective: day 0-1 Her bleeding has been light. She has been ambulating and tolerating a regular diet. Her pain is mostly related to her back, she does not complain of abdominal pain Vitals/I&O/Wt Last Vital Signs Temp 99.1 F 03/30/24 05:30 Pulse 92 03/30/24 05:30 Resp 14 03/30/24 05:30 BP 132/71 03/30/24 05:30 Pulse Ox 97 03/30/24 05:30 O2 Del Method Room Air 03/30/24 05:30 03/30/24 03/30/24 03/30/24 06:59 14:59 22:59 Intake Total 800.233 / 2250.000 Output Total 400 / 1800 Balance 400.233 / 450.000 Weight last 48 hrs Weight 84.822 kg Physical Exam 2 Narrative: Alert and oriented, walking around the room, heart regular rate and rhythm, lungs clear to auscultation bilaterally, abdomen is soft and nontender, extremities have trace edema but no calf tenderness Urinary Catheter Management: Ruano: Cath Placed During This Visit: yes, but has since been removed by the nurse Reason for Continuing Indwelling Catheter: Decision to DC Catheter Urinary Catheter Date of Insertion: 03/29/24 Urinary Catheter Time of Insertion: 08:00 Date Urinary Catheter Removed: 03/29/24 Time Urinary Catheter Discontinued: 23:23 Data 03/30/24 10:50 03/29/24 03:20 A&P Assessment and plan (1) (normal spontaneous vaginal delivery): Routine care (2) -induced hypertension in third trimester: Her blood pressures have been normalizing (3) Gestational diabetes mellitus (GDM): DC metformin Attestations 2 Medical Necessity Statement*: Routine care Coding Level of Care Code Acute Code for Chg Fwd Diagnoses (normal spontaneous vaginal delivery) O80 -induced hypertension in third trimester O13.3 Gestational diabetes mellitus (GDM) O24.419
[2024-03-31 04:00] VITALS: BP 127/75; PULSE 98; RESP 12; TEMP 36.4; O2SAT 100
[2024-03-31] MEDS: PRENATAL VIT NO.130/IRON/FOLIC 1 EACH TABLET PO (08:33)
[2024-03-31] MEDS: ibuprofen 800 mg tablet PO ×2 (08:33→14:18)
[2024-03-31] MEDS: docusate sodium 100 mg Capsule PO (08:33)
[2024-03-31 10:00] VITALS: BP 113/83; PULSE 83; RESP 16; TEMP 37.1
--- NOTE | 2024-03-31 17:57 | P.PN_ITS ---
Subjective 2 Subjective: Doing well. Ambulating and tolerating a regular diet. Still having back pain she likely contributes to her chronic issues. Swelling a little bit more in her feet and legs today. Vitals/I&O/Wt Last Vital Signs Temp 98.7 F 03/31/24 10:00 Pulse 83 03/31/24 10:00 Resp 16 03/31/24 10:00 BP 113/83 03/31/24 10:00 Pulse Ox 100 03/31/24 04:00 O2 Del Method Room Air 03/31/24 10:00 Physical Exam 2 Narrative: Alert and oriented, sitting in bed eating dinner, heart regular rate and rhythm, lungs clear to auscultation bilaterally, abdomen is soft and nontender, extremities have trace edema no calf tenderness Urinary Catheter Management: Ruano: Cath Placed During This Visit: yes, but has since been removed by the nurse Reason for Continuing Indwelling Catheter: Decision to DC Catheter Urinary Catheter Date of Insertion: 03/29/24 Urinary Catheter Time of Insertion: 08:00 Date Urinary Catheter Removed: 03/29/24 Time Urinary Catheter Discontinued: 23:23 Data 03/30/24 10:50 03/29/24 03:20 A&P Assessment and plan (1) (normal spontaneous vaginal delivery): Routine care. Doing well. Will discharge home today. (2) -induced hypertension in third trimester: Resolved (3) Gestational diabetes mellitus (GDM): Patient may DC her metformin. Recommend follow-up testing for known gestational diabetes in 6 to 12 months. (4) Anemia: Commendation of related and blood loss related. Patient has been instructed to take an iron supplement for at least 1 to 2 months. Attestations 2 Medical Necessity Statement*: Routine care. Coding Level of Care Code Acute Code for Chg Fwd Diagnoses (normal spontaneous vaginal delivery) O80 -induced hypertension in third trimester O13.3 Gestational diabetes mellitus (GDM) O24.419 Anemia D64.9
--- NOTE | 2024-03-31 18:02 | PM.DCS ---
Discharge Providers Date of Admission: 03/29/24 03:27 Date of Discharge: March 31, 2024 Attending Provider at Admission: Whitney Zambrano MD Attending Provider at Discharge: Whitney Zambrano MD Primary Care Provider: TITA CRUZ MD Diagnoses at Discharge Discharge Diagnosis (1) (normal spontaneous vaginal delivery): Status: Acute (2) -induced hypertension in third trimester: Status: Acute (3) Gestational diabetes mellitus (GDM): Status: Acute (4) Anemia: Status: Acute Reason for Visit Reason for Visit: possible contractions Hospital Course Hospital Course This is a 28-year-old G1 now P1 who was admitted with -induced hypertension and induced. She had a normal spontaneous vaginal delivery of a viable female infant. She has done well . Her blood pressures have normalized without intervention . She has some blood loss anemia on top of anemia and will be started on iron supplementation. She is being discharged home in good condition Physical Exam Narrative: Alert and oriented, sitting up in bed eating dinner, heart regular rate and rhythm, lungs clear to auscultation bilaterally, abdomen soft and nontender, extremities have no calf tenderness and trace edema Urinary Catheter Management: Ruano: Cath Placed During This Visit: yes, but has since been removed by the nurse Reason for Continuing Indwelling Catheter: Decision to DC Catheter Urinary Catheter Date of Insertion: 03/29/24 Urinary Catheter Time of Insertion: 08:00 Date Urinary Catheter Removed: 03/29/24 Time Urinary Catheter Discontinued: 23:23 Discharge Data Studies Completed and Pending Laboratory Results WBC 13.49 10^3/uL (3.29-11.43) H 03/30/24 10:50 RBC 2.56 10^6/uL (3.85-5.65) L 03/30/24 10:50 Hgb 6.70 g/dL (11.27-16.99) L 03/30/24 10:50 Hct 21.4 % (36-47) L 03/30/24 10:50 MCV 83.6 fl (85-98) L 03/30/24 10:50 MCH 26.2 pg (27-33) L 03/30/24 10:50 MCHC 31.3 g/dL (30-55) 03/30/24 10:50 RDW 13.8 % (12.1-15.1) 03/30/24 10:50 Plt Count 222 10^3/cmm (157-399) 03/30/24 10:50 MPV 9.3 fL (7.4-10.4) 03/30/24 10:50 Neut % (Auto) 59.7 % 03/29/24 03:20 Lymph % (Auto) 29.5 % 03/29/24 03:20 [place] % (Auto) 8.0 % 03/29/24 03:20 Eos % (Auto) 1.5 % 03/29/24 03:20 Baso % (Auto) 0.7 % 03/29/24 03:20 Neut # (Auto) 6.41 10^3/uL (1.8-7.7) 03/29/24 03:20 Lymph # (Auto) 3.2 10^3/uL (0.8-4.8) 03/29/24 03:20 [place] # (Auto) 0.9 10^3/uL (0.2-0.9) 03/29/24 03:20 Eos # (Auto) 0.2 10^3/uL (0.0-0.8) 03/29/24 03:20 Baso # (Auto) 0.1 10^3/uL (0.0-0.1) 03/29/24 03:20 Nucleated RBC % (auto) 0.2 % 03/29/24 03:20 Nucleated RBCs # 0.0 /100WBC 03/29/24 03:20 Sodium 139 mmol/L (136-145) 03/29/24 03:20 Potassium 3.9 mmol/L (3.5-5.1) 03/29/24 03:20 Chloride 106 mmol/L (98-107) 03/29/24 03:20 Carbon Dioxide 21 mmol/L (22-29) L 03/29/24 03:20 Anion Gap 15.9 (5-19) 03/29/24 03:20 BUN 8 mg/dL (6-20) 03/29/24 03:20 Creatinine 0.4 mg/dL (0.5-0.9) L 03/29/24 03:20 GFR Calculation 191.5 mL/min (90-130) H 03/29/24 03:20 Glucose 79 mg/dL (65-115) 03/29/24 03:20 POC Glucose 89 mg/dL (70-110) 03/29/24 19:06 Calculated Osmolality 285 mOsm/kg (285-295) 03/29/24 03:20 Uric Acid 3.7 mg/dL (2.4-5.7) 03/29/24 03:20 Calcium 8.1 mg/dL (8.5-10.5) L 03/29/24 03:20 Total Bilirubin 0.2 mg/dL (0.15-1.2) 03/29/24 03:20 AST 12 U/L (0-32) 03/29/24 03:20 ALT < 5 U/L (0-33) 03/29/24 03:20 Alkaline Phosphatase 164 U/L (35-105) H 03/29/24 03:20 Total Protein 5.8 g/dL (6.6-8.7) L 03/29/24 03:20 Albumin 3.2 g/dL (3.5-5.2) L 03/29/24 03:20 Globulin 2.6 g/dL (1.3-4.6) 03/29/24 03:20 Urine Color Yellow (Yellow) 03/29/24 03:20 Urine Appearance Clear (CLEAR) 03/29/24 03:20 Urine pH 6.0 (5-7) 03/29/24 03:20 Ur Specific [place] 1.018 (1.005-1.030) 03/29/24 03:20 Urine Protein Negative (Negative) 03/29/24 03:20 Urine Glucose (UA) Negative (Normal) 03/29/24 03:20 Urine Ketones Negative (Negative) 03/29/24 03:20 Urine Blood Negative (Negative) 03/29/24 03:20 Urine Nitrate Negative (Negative) 03/29/24 03:20 Urine Bilirubin Negative (Negative) 03/29/24 03:20 Urine Urobilinogen 1.0 mg/dL (Negative) 03/29/24 03:20 Ur Leukocyte Esterase Negative (Negative) 03/29/24 03:20 Urine RBC 0-2 /hpf (0-2) 03/29/24 03:20 Urine WBC 0-5 /hpf (0-5) 03/29/24 03:20 Ur Squamous Epith Cells 0-5 /hpf (0-5) 03/29/24 03:20 Amorphous Sediment Not Reportable 03/29/24 03:20 Urine Bacteria None seen /hpf (NONE) 03/29/24 03:20 Hyaline Casts 0-4 /lpf H 03/29/24 03:20 U Random Total Protein 13 mg/dL 03/29/24 03:20 Urine Creatinine 84 mg/dL (28-217) 03/29/24 03:20 Protein/Creatinin Ratio 0.15 mg/mg CR 03/29/24 03:20 Urine Opiates Screen Negative ng/mL (Negative) 03/29/24 03:20 Ur Barbiturates Screen Negative ng/mL (Negative) 03/29/24 03:20 Ur Phencyclidine Scrn Negative ng/mL (Negative) 03/29/24 03:20 Ur Amphetamines Screen Negative ng/mL (Negative) 03/29/24 03:20 U Benzodiazepines Scrn Negative ng/mL (Negative) 03/29/24 03:20 Urine Cocaine Screen Negative ng/mL (Negative) 03/29/24 03:20 U Marijuana (THC) Screen Negative ng/mL (Negative) 03/29/24 03:20 Blood Type B Positive 03/29/24 03:20 Rho(D) Type Rh positive 03/29/24 03:20 Antibody Screen Negative 03/29/24 03:20 Vitals Last Vital Signs Temp 98.7 F 03/31/24 10:00 Pulse 83 03/31/24 10:00 Resp 16 03/31/24 10:00 BP 113/83 03/31/24 10:00 Pulse Ox 100 03/31/24 04:00 O2 Del Method Room Air 03/31/24 10:00 Discharge Plan Discharge Patient Disposition: Home Condition: Stable Prescriptions: New ibuprofen 800 mg Tablet 800 mg PO TID PRN (Reason: Abdominal Discomfort) Qty: 40 0RF docusate sodium 100 mg Capsule 100 mg PO BID Qty: 60 0RF ferrous sulfate 325 mg (65 mg iron) tablet,delayed release (DR/EC) 325 mg PO DAILY Qty: 30 1RF Continued duloxetine [Cymbalta] 60 mg capsule,delayed release(DR/EC) 20 mg PO BID hydrocodone-acetaminophen 5-325 mg tablet 1 tab PO Q6H PRN (Reason: pain) gabapentin 400 mg capsule 400 mg PO DAILY metformin 500 mg Tablet Extended Release 24 Hr 1,000 mg PO DAILY Discharge Orders: Discharge Order (Routine); Ordered 03/31/24 Ordered By: Whitney Zambrano Referrals: Whitney Zambrano MD [Physician] - 1 month Discharge Diet: Usual diet Discharge Activity: Limit activity as instructed Patient Instructions: Depression (DC), Opioid Safety (DC), Preeclampsia and Eclampsia After Delivery (GEN), Hemorrhage (DC), OB Discharge Report, OB Food/Drug Interaction Guide, OB Care at Home, Opioid Safety, OB Vaginal Deliveries, Abnormal Bleeding Activity Restrictions/Additional Instructions: Nothing per vagina for 6 weeks Discharge Attestations Time Spent in Discharge Care*: less than 30 min Quality Metrics Clinical Quality Measures [ No reported AMI, CVA or VTE this stay] Coding Level of Care Code Acute Code for Chg Fwd Diagnoses (normal spontaneous vaginal delivery) O80 -induced hypertension in third trimester O13.3 Gestational diabetes mellitus (GDM) O24.419 Anemia D64.9
[2024-03-31] MEDS: flu vacc pf 24-25 (6 mos+) SYRINGE 45 MCG IM (18:41)
[2024-03-31 18:43] VITALS: BP 118/85; PULSE 88; RESP 16; TEMP 37; O2SAT 100
== END 2024-03-31 18:48 | disposition home or self-care (01) | DRG 806 ==
LOC: OPOB 03:28 → OBGYN 03:28
PROVIDERS: Admitting Provider Family Medicine; PCP Family Medicine; Visit Provider Family Medicine
DX: O13.4 Gestational [pregnancy-induced] hypertension without significant proteinuria, complicating childbirth (principal); D62 Acute posthemorrhagic anemia; Z37.0 Single live birth; O24.425 Gestational diabetes mellitus in childbirth, controlled by oral hypoglycemic drugs; Z3A.38 38 weeks gestation of pregnancy; G89.4 Chronic pain syndrome; O70.1 Second degree perineal laceration during delivery; O90.81 Anemia of the puerperium; Z79.891 Long term (current) use of opiate analgesic; O75.89 Other specified complications of labor and delivery
CPT/HCPCS: 36415; 36416; 51702; 59025; 59409; 80053; 80306; 81001; 82570; 82962; 84156; 84550; 85025; 85027; 86850; 86900; 90686; 96374; 99211; J0290; J2590; J2795; J3010; J3490; J7120; J7121